=== PATIENT | male | born 1995 | race Caucasian/White ===

== ENCOUNTER 2017-03-06 05:26 | Observation (INO) | payer BC ==
[2017-03-06] VITALS (7 sets, daily range): BP systolic 115–139; BP diastolic 55–76
[~2017-03-06] VITALS: Ht 180.3 cm; Wt 100.2 kg
[2017-03-07] VITALS: BP 149/60
[2017-03-07 04:09] VITALS: BP 124/60
[2017-03-07] MEDS ORDERED: HYCET 7.5 MG-3473 ML PO (07:33)
[2017-03-07] MEDS ORDERED: AMOXICILLI400 MG/5 M PO (07:34)
[2017-03-07 07:35] VITALS: BP 124/60
[2017-03-07] MEDS ORDERED: PERIDEX15 ML MM (07:35)
[2017-03-07 08:00] VITALS: BP 144/68
== END 2017-03-07 11:10 | disposition home or self-care (01) ==
LOC: TBA 05:26 → OR 05:26 → 5S 11:30 → OR 11:30 → 5S 11:30
DX: M26.212 Malocclusion, Angle's class II (principal); M26.02 Maxillary hypoplasia
CPT/HCPCS: 50010; 50101; 50386; 50398; 55106; 55430; 56526; 56528; 62110; 62900; 64034; 70005